=== PATIENT | female | born 1990 | race Caucasian/White ===

== ENCOUNTER 2016-06-13 16:57 | Emergency (ER) | payer OTHER ==
[~2016-06-13] VITALS: Ht 170.2 cm; Wt 70.0 kg
[2016-06-13 17:45] LABS: MCV 85.7 FL (83-99); MEAN PLAT.VOLUME 9.7 uM^3 (9.5-12.4); PLATELET COUNT 219 K/uL (156-360); RBC DIS.WIDTH-CV 12.6 % (11.8-14.6); RBC DIS.WIDTH-SD 38.8 % (39-53); WHITE BLOOD COUNT 20.8 K/uL (4.1-10.2)
[2016-06-13 17:53] LABS: CHLORIDE 101 mEq/L (99-109)
[2016-06-13 17:54] LABS: POTASSIUM 3.8 mEq/L (3.7-5.4); SODIUM 133 mEq/L (136-147)
[2016-06-13 17:55] LABS: GLUCOSE 79 mg/dL (70-99)
[2016-06-13 17:57] LABS: ANION GAP 9 MEQ/L (2-14)
[2016-06-13 17:59] LABS: GFR ESTIMATE (CALCULATED) > 59 mL/min/
[2016-06-13 18:00] LABS: UREA NITROGEN (BUN) 9 mg/dL (9-23)
[2016-06-13 18:05] LABS: TROP-I INTERPRETATION NEGATIVE; TROPONIN-I 0.01 ng/mL (0.0-0.30)
[2016-06-13 18:08] LABS: QUANTITATIVE HCG < 4.0 MIU/ML
[2016-06-13 18:42] LABS: ADD MIUA? YES; BILIRUBIN NEGATIVE; BLOOD LARGE; COLOR AMBER ((YELLOW)); GLUCOSE (STRIP) NEGATIVE; KETONES NEGATIVE; LEUKOCYTES MODERATE; NITRITE NEGATIVE; PROTEIN (STRIP) 100; SPECIFIC GRAVITY 1.025 (1.000-1.030); UROBILINOGEN 0.2 MG/DL (0.2-1.0)
[2016-06-13 19:01] LABS: CASTS PRESENT /LPF; FINE GRANULAR CASTS 0-5 /LPF; HYALINE CASTS 0-5 /LPF
[2016-06-13 19:03] LABS: BACTERIA 2+ /HPF; EPITHELIAL CELLS 1+ /HPF; MUCUS 2+ /LPF; UCUL ADDED? YES
[2016-06-13 19:17] LABS: INFLUENZA A VIRAL ANTIGEN NEGATIVE; INFLUENZA B VIRAL ANTIGEN NEGATIVE
[2016-06-13] MEDS ORDERED: KEFLEX500 MG PO (19:47)
[2016-06-13] MEDS ORDERED: FLEXERIL10 MG PO (19:47)
[2016-06-13] MEDS ORDERED: NAPROSYN500 MG PO (19:47)
[2016-06-13 19:57] VITALS: BP 129/86
== END 2016-06-13 19:58 | disposition home or self-care (01) ==
LOC: EME 16:57
PROVIDERS: Physician Assistant
DX: N39.0 Urinary tract infection, site not specified (principal); R55 Syncope and collapse; I10 Essential (primary) hypertension; M34.9 Systemic sclerosis, unspecified; F17.200 Nicotine dependence, unspecified, uncomplicated
CPT/HCPCS: 71020; 80048; 81003; 84484; 84702; 85027; 87086; 87502; 93005; 99281; 99284; J1885

== ENCOUNTER 2017-09-16 12:35 | Inpatient (IN) | payer OTHER ==
[~2017-09-16] VITALS: Ht 170.2 cm; Wt 80.7 kg
[~2017-09-16 12:35] MED LIST: FLEXERIL10 MG PO; KEFLEX500 MG PO; NAPROSYN500 MG PO
[2017-09-16 13:14] VITALS: BP 148/69
[2017-09-16] MEDS ORDERED: FEOSOL325 MG PO (13:30)
[2017-09-16 14:28] LABS: BASOPHIL (%) 0.2 % (0-1); EOSINOPHIL (%) 0.2 % (0-5); HEMATOCRIT 35.5 % (36.0-46.0); HEMOGLOBIN 11.6 G/DL (11.9-15.5); IMMATURE GRANULOCYTE (%) 1.1 % (0.0-0.7); LYMPHOCYTE (%) 14.9 % (15-42); LYMPHOCYTE COUNT 2.7 K/uL (1.0-2.8); MCH 30.1 PG (29.0-34.0); MCHC 32.7 G/DL (30.0-36.0); MONOCYTE (%) 4.1 % (3-12); MONOCYTE COUNT 0.7 K/uL (0-0.8); NEUTROPHIL (%) 79.5 % (45-76); NEUTROPHIL COUNT 14.3 K/uL (1.8-6.4); PLATELET COUNT 242 K/uL (156-360); RBC DIS.WIDTH-CV 13.6 % (11.8-14.6); RBC DIS.WIDTH-SD 45.9 % (39-53); RED BLOOD COUNT 3.86 M/uL (3.80-5.20); WHITE BLOOD COUNT 17.9 K/uL (4.1-10.2)
[2017-09-16 16:42] VITALS: BP 120/58
[2017-09-16 19:23] VITALS: BP 107/55
[2017-09-16 22:47] VITALS: BP 84/44
[2017-09-17 03:13] VITALS: BP 121/53
[2017-09-17 07:22] LABS: BASOPHIL (%) 0.2 % (0-1); EOSINOPHIL (%) 0.4 % (0-5); EOSINOPHIL COUNT 0.1 K/uL (0-0.3); HEMATOCRIT 27.3 % (36.0-46.0); IMMATURE GRANULOCYTE (%) 0.6 % (0.0-0.7); LYMPHOCYTE (%) 19.9 % (15-42); LYMPHOCYTE COUNT 3.1 K/uL (1.0-2.8); MCH 29.6 PG (29.0-34.0); MCHC 32.6 G/DL (30.0-36.0); MCV 90.7 FL (83-99); MONOCYTE (%) 5.5 % (3-12); MONOCYTE COUNT 0.9 K/uL (0-0.8); NEUTROPHIL (%) 73.4 % (45-76); NEUTROPHIL COUNT 11.4 K/uL (1.8-6.4); PLATELET COUNT 208 K/uL (156-360); RBC DIS.WIDTH-CV 13.6 % (11.8-14.6); RBC DIS.WIDTH-SD 45.1 % (39-53); WHITE BLOOD COUNT 15.5 K/uL (4.1-10.2)
[2017-09-17 07:25] LABS: HEMOGLOBIN 8.9 G/DL (11.9-15.5); RED BLOOD COUNT 3.01 M/uL (3.80-5.20)
[2017-09-17 07:31] VITALS: BP 119/57
[2017-09-17 10:43] VITALS: BP 121/67
[2017-09-17 15:16] VITALS: BP 122/68
[2017-09-18] VITALS: BP 117/56
[2017-09-18 07:05] VITALS: BP 99/56
[2017-09-18 10:58] VITALS: BP 145/70
[2017-09-18] MEDS ORDERED: IBUPROFEN800 MG PO (11:59)
[2017-09-18 12:33] VITALS: BP 125/65
[2017-09-18 15:23] VITALS: BP 117/57
== END 2017-09-18 18:15 | disposition home or self-care (01) | DRG 767 ==
LOC: LDRP-OP 12:35 → 2WEST 12:36 → LDRP-OP 12:40 → 2WEST 13:36 → LDRP-OP 10-25 09:05
PROVIDERS: Nurse Practitioner
PROC: 10D07Z3 Extraction of Products of Conception, Low Forceps, Via Natural or Artificial Opening (ICD-10-PCS; principal; 2017-09-16)
PROC: 10D17Z9 Manual Extraction of Products of Conception, Retained, Via Natural or Artificial Opening (ICD-10-PCS; 2017-09-16)
DX: O10.92 Unspecified pre-existing hypertension complicating childbirth (principal); O70.0 First degree perineal laceration during delivery; O73.0 Retained placenta without hemorrhage; O43.123 Velamentous insertion of umbilical cord, third trimester; O69.89X0 Labor and delivery complicated by other cord complications, not applicable or unspecified; O99.02 Anemia complicating childbirth; D62 Acute posthemorrhagic anemia; O22.43 Hemorrhoids in pregnancy, third trimester; O99.324 Drug use complicating childbirth; F11.90 Opioid use, unspecified, uncomplicated; O99.334 Smoking (tobacco) complicating childbirth; F17.210 Nicotine dependence, cigarettes, uncomplicated; O99.344 Other mental disorders complicating childbirth; F32.9 Major depressive disorder, single episode, unspecified; Z3A.38 38 weeks gestation of pregnancy; Z37.0 Single live birth
CPT/HCPCS: 85025; 86850; 86900; 86901; 88307; J0330; J0595; J0690; J2405; J2590; J3010